=== PATIENT | male | born 1985 | race Caucasian/White ===

== ENCOUNTER 2016-09-22 18:33 | Emergency (ER) | payer MEDICAID ==
[~2016-09-22 18:33] MED LIST: ALBUTEROL17 GM; KEFLEX500 MG PO; SINGULAIR10 MG
[2016-09-22] MEDS ORDERED: KLONOPIN1 M1 PO ×2 (19:19→19:54)
[2016-09-22] MEDS ORDERED: TOPROL XL50 M1 PO (19:20)
[2016-09-22] MEDS ORDERED: PROTONIX40 M2 PO (19:53)
== END 2016-09-22 20:05 ==
LOC: EDMED 18:33
DX: F41.9 Anxiety disorder, unspecified (principal); K21.9 Gastro-esophageal reflux disease without esophagitis; J45.909 Unspecified asthma, uncomplicated; I10 Essential (primary) hypertension; Z87.891 Personal history of nicotine dependence; Z79.899 Other long term (current) drug therapy